=== PATIENT | male | born 1975 ===

== ENCOUNTER 2021-09-26 08:51 | Day surgery (SDC) | payer OTHER | END 2021-09-26 17:00 | disposition home or self-care (01) | LOC: CIR.AMB 08:51 | PROVIDERS: ATTEND Orthopaedic Surgery | DX: M75.122 Complete rotator cuff tear or rupture of left shoulder, not specified as traumatic (principal); M75.22 Bicipital tendinitis, left shoulder; M24.122 Other articular cartilage disorders, left elbow; E78.5 Hyperlipidemia, unspecified; Z71.6 Tobacco abuse counseling; F17.200 Nicotine dependence, unspecified, uncomplicated; R73.03 Prediabetes; E66.9 Obesity, unspecified ==